=== PATIENT | male | born 1950 | race Caucasian/White ===

== ENCOUNTER 2018-07-09 05:57 | Observation (INO) | payer MEDICARE ==
[2018-07-09] MEDS ORDERED: ASPIRIN 81 MG TABLET, CHEWABLE PO ONE (06:44)
--- NOTE | 2018-07-09 06:47 | ER Document Report ---
ED Medical Screen (RME) - General Chief Complaint: Chest Pain Stated Complaint: CHEST PAIN Time Seen by Provider: 07/09/18 06:40 Notes: Patient is a 60-year-old male presenting to the emergency department complaining of chest pressure. Patient states since he has had intermittent chest pressure and belching. Patient denies any shortness of breath, nausea, vomiting, diarrhea, acid indigestion or GERD history. Patient states this morning he was walking up the steps when the chest pressure developed. States when he sat down and relaxed the chest pressure had resolved. Patient states he was concerned because he has had this intermittently for the last couple days so he presents to the emergency room. Past medical history: Hypertension, hyperlipidemia Medications: Patient is unsure of names Allergies: None Patient denies cigarette smoking, EtOH use, illicit drug use. Physical exam: Lung sounds CTA all espinoza, no chest pain upon palpation of chest , no crepitus.. Patient currently is stating he is chest pain-free. I have greeted and performed a rapid initial assessment of this patient. A comprehensive ED assessment and evaluation of the patient, analysis of test results and completion of the medical decision making process will be conducted by additional ED providers. TRAVEL OUTSIDE OF THE [place] IN LAST 30 DAYS: No - Related Data Allergies/Adverse Reactions: No Known Allergies Allergy (Unverified 07/09/18 06:23) Past Medical History - Social History Chew tobacco use (# tins/day): No Frequency of alcohol use: None Drug Abuse: None - Past Medical History Cardiac Medical History: Reports: Hx Hypercholesterolemia, Hx Hypertension Renal/ Medical History: Denies: Hx Peritoneal Dialysis Physical Exam - Vital signs Vitals: Temp Pulse Resp BP Pulse Ox 98.7 F 55 L 18 180/83 H 96 07/09/18 05:58 07/09/18 05:58 07/09/18 05:58 07/09/18 05:58 07/09/18 05:58 Course - Vital Signs Vital signs: Temp Pulse Resp BP Pulse Ox 98.7 F 55 L 18 180/83 H 96 07/09/18 05:58 07/09/18 05:58 07/09/18 05:58 07/09/18 05:58 07/09/18 05:58
[2018-07-09 06:55] LABS: ABSOLUTE EOSINOPHILS # (AUTO) 0.2 10^3/uL (0.0-0.6); ABSOLUTE LYMPHOCYTES (AUTO) 2.1 10^3/uL (0.5-4.7); ABSOLUTE MONOCYTES (AUTO) 0.6 10^3/uL (0.1-1.4); ABSOLUTE NEUT (AUTO) 3.8 10^3/uL (1.7-8.2); BASOPHILS % (AUTO) 0.5 % (0-2); EOSINOPHILS % (AUTO) 2.8 % (0-6); HEMATOCRIT 44.1 % (37.9-51.0); HEMOGLOBIN 15.3 g/dL (13.5-17.0); LYMPHOCYTES % (AUTO) 31.3 % (13-45); MEAN CORPUSCULAR HEMOGLOBIN 30.2 pg (27.0-33.4); MEAN CORPUSCULAR HGB CONC 34.8 g/dL (32.0-36.0); MEAN CORPUSCULAR VOLUME 87 fl (80-97); MONOCYTES % (AUTO) 8.8 % (3-13); PLATELET COUNT 249 10^3/uL (150-450); RED BLOOD COUNT 5.08 10^6/uL (4.35-5.55); RED CELL DISTRIBUTION WIDTH 12.8 % (11.5-14.0); SEGMENTED NEUTROPHILS % (AUTO) 56.6 % (42-78); TOTAL CELLS COUNTED % (AUTO) 100 %; WHITE BLOOD COUNT 6.7 10^3/uL (4.0-10.5)
--- NOTE | 2018-07-09 07:00 | ER Document Report ---
ED Cardiac - General Mode of Arrival: Ambulatory Information source: Patient TRAVEL OUTSIDE OF THE [place] IN LAST 30 DAYS: No <SCOTT CHEUNG - Last Filed: 07/09/18 08:27> <IRMA CASTRO - Last Filed: 07/09/18 10:05> - General Chief Complaint: Chest Pain Stated Complaint: CHEST PAIN Time Seen by Provider: 07/09/18 06:40 Notes: 68-year-old male who presents to the emergency department today with complaints of exertional chest pain. Patient states he has been having this pain for the past 6 days. Patient states the first time he had this pain was when he was walking up steps. Patient describes the pain as a pressure. Patient states he seems to only get this pain when he is exerting himself. Patient states his pain usually goes away when he burps. Patient states that when the pain begins he sometimes gets diaphoretic but denies any shortness of breath. Patient states both his mother and father had TIAs. Patient has had GERD in the past "when he worked" but states since retiring he has not had a problem with GERD. ( SCOTT CHEUNG) - Related Data Allergies/Adverse Reactions: No Known Allergies Allergy (Unverified 07/09/18 06:23) Past Medical History - General Information source: Patient - Social History Smoking Status: Never Smoker Cigarette use (# per day): No Chew tobacco use (# tins/day): No Frequency of alcohol use: None Drug Abuse: None Lives with: Family Family History: Reviewed & Not Pertinent Patient has suicidal ideation: No Patient has homicidal ideation: No - Past Medical History Cardiac Medical History: Reports: Hx Hypercholesterolemia, Hx Hypertension Surgical Hx: Negative <SCOTT CHEUNG - Last Filed: 07/09/18 08:27> Review of Systems - Review of Systems Constitutional: See HPI, Diaphoresis EENT: No symptoms reported Cardiovascular: See HPI, Chest pain Respiratory: denies: Short of breath Gastrointestinal: No symptoms reported Genitourinary: No symptoms reported Male Genitourinary: No symptoms reported Musculoskeletal: No symptoms reported Skin: No symptoms reported Hematologic/Lymphatic: No symptoms reported Neurological/Psychological: No symptoms reported -: Yes All other systems reviewed and negative <SCOTT CHEUNG - Last Filed: 07/09/18 08:27> Physical Exam <SCOTT CHEUNG - Last Filed: 07/09/18 08:27> <IRMA CASTRO - Last Filed: 07/09/18 10:05> - Vital signs Vitals: Temp Pulse Resp BP Pulse Ox 98.7 F 55 L 18 180/83 H 96 07/09/18 05:58 07/09/18 05:58 07/09/18 05:58 07/09/18 05:58 07/09/18 05:58 - Notes Notes: Physical Exam: General: Alert, appears well. HEENT: Normocephalic. Atraumatic. PERRL. Extraocular movements intact. Oropharynx clear. Neck: Supple. Non-tender. Respiratory: No respiratory distress. Clear and equal breath sounds bilaterally. Cardiovascular: Regular rate and rhythm. Abdominal: Normal Inspection. Non-tender. No distension. Normal Bowel Sounds. Back: Non-tender. No deformity or step off. Extremities: Moves all four extremities. Upper extremities: Normal inspection. Normal ROM. Lower extremities: Normal inspection. No edema. Normal ROM. Neurological: Normal cognition. AAOx4. Normal speech. Psychological: Normal affect. Normal Mood. Skin: Warm. Dry. Normal color. (SCOTT CHEUNG) Course - Laboratory Result Diagrams: 07/09/18 06:12 07/09/18 06:12 <SCOTT CHEUNG - Last Filed: 07/09/18 08:27> - Laboratory Result Diagrams: 07/09/18 06:12 07/09/18 06:12 - Diagnostic Test Radiology reviewed: Image reviewed, Reports reviewed - Chest x-ray does not show acute cardiopulmonary process - EKG Interpretation by Al EKG shows normal: Sinus rhythm, [place], Intervals, QRS Complexes, ST-T Waves Rate: Normal - 55 Rhythm: NSR When compared to previous EKG there are: Previous EKG unavailable - Consults Dr. Steen Time consulted: 10:00 Consulted provider: will come to ER <IRMA CASTRO - Last Filed: 07/09/18 10:05> - Vital Signs Vital signs: Temp Pulse Resp BP Pulse Ox 98.7 F 55 L 11 L 163/73 H 95 07/09/18 05:58 07/09/18 05:58 07/09/18 10:00 07/09/18 10:00 07/09/18 10:00 - Laboratory Laboratory results interpreted by me: 07/09/18 07/09/18 06:12 06:12 Glucose 116 H CK-MB (CK-2) 5.18 H Discharge <SCOTT CHEUNG - Last Filed: 07/09/18 08:27> - Discharge Admitting Provider: Hospitalist Unit Admitted: Telemetry <IRMA CASTRO - Last Filed: 07/09/18 10:05> - Discharge Clinical Impression: Exertional chest pain Condition: Stable Disposition: ADMITTED INPATIENT Scribe Attestation: 07/09/18 07:58 I personally performed the services described in the documentation, reviewed and edited the documentation which was dictated to the scribe in my presence, and it accurately records my words and actions. (IRMA CASTRO) Scribe Documentation - Scribe Written by Scribe:: Dae Kearney, 07/09/2018 0831 acting as scribe for :: Belén <SCOTT CHEUNG - Last Filed: 07/09/18 08:27>
--- NOTE | 2018-07-09 07:19 | RADIOLOGY REPORT (SQ) ---
EXAM DESCRIPTION: XR CHEST 1 VIEW COMPLETED DATE/TME: 07/09/2018 06:45 CLINICAL HISTORY: 68 years Male, CP COMPARISON: None. NUMBER OF VIEWS/TECHNIQUE: 1/AP FINDINGS: Adequate lung volume, clear parenchyma, normal cardiac silhouette, and intact bony thorax. IMPRESSION: No acute cardiopulmonary findings.
--- NOTE | 2018-07-09 07:38 | EKG REPORT ---
SEVERITY:- ABNORMAL ECG - SINUS RHYTHM PROBABLE INFERIOR INFARCT, OLD : Confirmed by: Stevie Gramajo MD 09-Jul-2018 07:38:11
[2018-07-09 07:46] LABS: ALANINE AMINOTRANSFERASE 30 U/L (21-72); ALBUMIN 4.1 g/dL (3.5-5.0); ALKALINE PHOSPHATASE 64 U/L (38-126); ANION GAP 10 (5-19); ASPARTATE AMINO TRANSFERASE 24 U/L (17-59); BILIRUBIN,DIRECT 0.3 mg/dL (0.0-0.4); BILIRUBIN,TOTAL 0.7 mg/dL (0.2-1.3); BLOOD UREA NITROGEN 20 mg/dL (7-20); CALCIUM 9.7 mg/dL (8.4-10.2); CARBON DIOXIDE 29 mmol/L (22-30); CHLORIDE 104 mmol/L (98-107); CREATINE KINASE 117 U/L (55-170); GLUCOSE 116 mg/dL (75-110); SODIUM 143.2 mmol/L (137-145); TOTAL PROTEIN 6.8 g/dL (6.3-8.2)
[2018-07-09 07:59] LABS: CREATINE KINASE MB 5.18 ng/mL (<4.55); TROPONIN I 0.013 ng/mL
[2018-07-09 09:50] LABS: CREATINE KINASE MB 4.29 ng/mL (<4.55); TROPONIN I 0.016 ng/mL
[2018-07-09] MEDS ORDERED: NITROGLYCERIN 0.4 MG/TAB 25 TAB/BOTTLE SL PRN (12:32)
[2018-07-09] MEDS: HEPARIN SOD (PORCINE) 5,000 UNIT/ML 1 ML SYRINGE SUBCUT SCH ×2 (15:48→22:07)
[2018-07-09] MEDS: LANSOPRAZOLE 30 MG TAB.RAP.DR PO SCH (17:03)
--- NOTE | 2018-07-09 17:34 | PDOC H&P ---
History of Present Illness Admission Date/PCP: 07/09/18 10:20 Patient complains of: chest pain History of Present Illness: NORMA GROSS is a 68 year old male with a PMH of hypertension, hyperlipidemia , non-smoker and no significant cardiac family history who presented with chest pain which started 5 days ago (). He says that he was climbing up the stairs when he first had it and described it as both pressure-like and burning at the same time, 5/10 (in the worst episode, non-radiating and exertional. He says he also had associated belching. He says burping and resting gives him relief. He denies SOB, nausea/vomiting, palpitations or diaphoresis. He says it comes on and off lasting for a few minutes. He says the chest discomfort has been improving in the past few days but he decided to come in today because it still lingered earlier. He says he was already chest pain free in the ER when he came in and was given aspirin and so is not able to say if the aspirin helped or not. Past Medical History Cardiac Medical History: Reports: Hyperlipidema, Hypertension Social History Lives with: Family Smoking Status: Never Smoker Family History Family History: Reviewed & Not Pertinent Parental Family History Reviewed: Yes - no premature CAD Children Family History Reviewed: No Sibling(s) Family History Reviewed.: No Medication/Allergy Home Medications: Amlodipine Besylate/Benazepril [Lotrel 5-20 mg Capsule] 1 cap PO NOON 07/09/18 Atorvastatin Calcium [Lipitor 20 mg Tablet] 20 mg PO NOON 07/09/18 Cholecalciferol (Vitamin D3) [Vitamin D3 2000 unit Tablet] 2,000 unit PO NOON Furosemide [Lasix 40 mg Tablet] 40 mg PO NOON PRN 07/09/18 Meloxicam [Mobic] 15 mg PO NOON 07/09/18 Metoprolol Succinate [Toprol Xl 50 mg Tab.sr] 50 mg PO NOON 07/09/18 Potassium Chloride [K-Tab ER] 20 meq PO NOON PRN 07/09/18 Sertraline HCl [Zoloft 50 mg Tablet] 50 mg PO NOON 07/09/18 Allergies/Adverse Reactions: No Known Allergies Allergy (Unverified 07/09/18 06:23) Review of Systems All systems: reviewed and no additional remarkable complaints except as stated - as mentioned in HPI Physical Exam Vital Signs: Temp Pulse Resp BP Pulse Ox 98.7 F 55 L 16 161/74 H 96 07/09/18 05:58 07/09/18 05:58 07/09/18 10:31 07/09/18 10:31 07/09/18 10:31 General appearance: PRESENT: no acute distress, well-developed, well-nourished Head exam: PRESENT: atraumatic, normocephalic Eye exam: PRESENT: conjunctiva pink, EOMI, PERRLA. ABSENT: scleral icterus Ear exam: PRESENT: normal external ear exam Mouth exam: PRESENT: moist, tongue midline Neck exam: ABSENT: carotid bruit, JVD, lymphadenopathy, thyromegaly Respiratory exam: PRESENT: clear to auscultation kacey. ABSENT: rales, rhonchi, wheezes Cardiovascular exam: PRESENT: RRR. ABSENT: diastolic murmur, rubs, systolic murmur Pulses: PRESENT: normal dorsalis pedis pul GI/Abdominal exam: PRESENT: normal bowel sounds, soft. ABSENT: distended, guarding, mass, organolmegaly, rebound, tenderness Rectal exam: PRESENT: deferred Extremities exam: PRESENT: full ROM. ABSENT: calf tenderness, clubbing, pedal edema Neurological exam: PRESENT: alert, awake, oriented to person, oriented to place , oriented to time, oriented to situation, CN II-XII grossly intact. ABSENT: motor sensory deficit Psychiatric exam: PRESENT: appropriate affect, normal mood. ABSENT: homicidal ideation, suicidal ideation Results Impressions: Chest X-Ray 07/09/18 06:45 IMPRESSION: No acute cardiopulmonary findings. Assessment & Plan - Diagnosis (1) Chest pain Is this a current diagnosis for this admission?: Yes Plan: Patient is complaining of atypical chest pain with some GERD components as he says it is both pressure like and burning. He says the chest pain is also associated with a lot of belching. He says that burping as well as resting significantly relieves the chest discomfort. Troponins was slightly elevated at 0.016. 3rd troponin has normalized. EKG does not show acute changes. Patient has been chest pain free since admission. Will schedule patient for stress testing tomorrow. NPO post midnight. (2) Hypertension Is this a current diagnosis for this admission?: Yes Plan: Resume amlodipine and benazepril. Hold lopressor for now. (3) Hyperlipidemia Is this a current diagnosis for this admission?: Yes Plan: Resume atorvastatin. - Time Time Spent: 30 to 50 Minutes
[2018-07-09] MEDS ORDERED: AMLODIPINE BESYLATE PO SCH (17:45)
[2018-07-09] MEDS ORDERED: BENAZEPRIL PO SCH (17:45)
[2018-07-09] MEDS: ATORVASTATIN CALCIUM 20 MG TABLET PO SCH (17:53)
--- NOTE | 2018-07-09 18:37 | XCELERA REPORT ---
[address] [address] Transthoracic Echocardiogram Report Name: NORMA GROSS Age: 68 yrs Gender: Male : 1950 Patient Status: Inpatient Patient Location: [address] [place], [place] [id number] Study Date: 07/09/2018 03:46 PM Height: 72 in Weight: 220 lb BSA: 2.2 m2 Procedure: A complete two-dimensional transthoracic echocardiogram was performed (2D, M-mode, spectral and color flow Doppler). The study was technically adequate with some images being suboptimal in quality. Reason For Study: r/o ACS Ordering Physician: DEB MICHEL Performed By: Adrienne Ibanez Interpretation Summary The left ventricular ejection fraction is normal. There is mild concentric left ventricular hypertrophy. The left ventricle is grossly normal size. Doppler measurements suggest pseudonormalized left ventricular relaxation, which is associated with grade II/IV or mild to moderate diastolic dysfunction Wall motion cannot be accurately commented on, but no definite regional wall motion abnormalities noted. The left atrium is mildly dilated. The right atrium is normal in size There is a trace amount of mitral regurgitation There is no mitral valve stenosis. No aortic regurgitation is present. There is no aortic valve stenosis No tricuspid regurgitation. There is no tricuspid stenosis. The aortic root is not well visualized but is probably normal size. The inferior vena cava appeared small and collapsed with respiration (RAP 0-5 mmHg) There is no pericardial effusion. MMode/2D Measurements & Calculations RVDd: 4.3 cm LVIDd: 5.6 cm FS: 48.0 % Ao root diam: 3.2 cm IVSd: 0.99 cm LVIDs: 2.9 cm EDV(Teich): 154.4 ml Ao root area: 8.0 cm2 LVPWd: 0.99 cm ESV(Teich): 32.8 ml EF(Teich): 78.8 % Doppler Measurements & Calculations MV E max lisa: MV dec slope: Ao V2 max: LV V1 max P.6 cm/sec 103.5 cm/sec2 121.5 cm/sec 4.8 mmHg MV A max lisa: MV dec time: 0.46 sec Ao max P.9 mmHgLV V1 max: 61.0 cm/sec 109.9 cm/sec MV E/A: 0.78 PA V2 max: PI end-d lisa: TR max lisa: 79.9 cm/sec 85.7 cm/sec 330.4 cm/sec PA max P.6 mmHg TR max P.7 mmHg Left Ventricle The left ventricle is grossly normal size. There is mild concentric left ventricular hypertrophy. The left ventricular ejection fraction is normal. Doppler measurements suggest pseudonormalized left ventricular relaxation, which is associated with grade II/IV or mild to moderate diastolic dysfunction. Wall motion cannot be accurately commented on, but no definite regional wall motion abnormalities noted. Right Ventricle The right ventricle is mildly dilated. There is normal right ventricular wall thickness. The right ventricular systolic function is normal. Atria The right atrium is normal in size. The left atrium is mildly dilated. Interarterial septum not well visualized and not well dopplered. Cannot comment on ASD/PFO presence. Mitral Valve The mitral valve is grossly normal. There is no mitral valve stenosis. There is a trace amount of mitral regurgitation. Aortic Valve The aortic valve is grossly normal. There is no aortic valve stenosis. No aortic regurgitation is present. Tricuspid Valve The tricuspid valve is not well visualized, but is grossly normal. There is no tricuspid stenosis. No tricuspid regurgitation. Pulmonic Valve The pulmonic valve is not well visualized. Great Vessels The aortic root is not well visualized but is probably normal size. The inferior vena cava appeared small and collapsed with respiration (RAP 0-5 mmHg). Effusions There is no pericardial effusion. : DEB MICHEL > Orlando Berry
--- NOTE | 2018-07-09 18:56 | PDOC CONSULTATION ---
Consultation Consult Date: 07/09/18 Attending physician:: DEB MICHEL Consult reason:: Chest pain History of Present Illness Admission Date/PCP: 07/09/18 10:20 Patient complains of: Chest pain History of Present Illness: NORMA GROSS is a 68 year old male with a PMH of hypertension, hyperlipidemia , non-smoker and no significant cardiac family history who presented with chest pain which started 5 days ago (). He says that he was climbing up the stairs when he first had it and described it as both pressure-like and burning at the same time, 5/10 (in the worst episode, non-radiating and exertional. He says he also had associated belching. He says burping and resting gives him relief. He denies SOB, nausea/vomiting, palpitations or diaphoresis. He says it comes on and off lasting for a few minutes. He says the chest discomfort has been improving in the past few days but he decided to come in today because it still lingered earlier. He says he was already chest pain free in the ER when he came in and was given aspirin and so is not able to say if the aspirin helped or not. This history obtained by the hospitalist was reviewed and confirmed. Patient denies any prior history of myocardial infarction, angina or congestive heart failure. Patient does give history of loud habitual snoring, fatigue and tiredness during the day. Past Medical History Cardiac Medical History: Reports: Hyperlipidema, Hypertension Musculoskeltal Medical History: Reports: Arthritis - in hands Social History Information Source: Patient Lives with: Family Smoking Status: Never Smoker Drugs: None - Advance Directive Resuscitation Status: Full Code Surrogate healthcare decision maker:: Patient's is the surrogate decision-maker Family History Family History: Hyperlipidemia Parental Family History Reviewed: Yes Children Family History Reviewed: Yes Sibling(s) Family History Reviewed.: Yes Medication/Allergy Home Medications: Amlodipine Besylate/Benazepril [Lotrel 5-20 mg Capsule] 1 cap PO NOON 07/09/18 Atorvastatin Calcium [Lipitor 20 mg Tablet] 20 mg PO NOON 07/09/18 Cholecalciferol (Vitamin D3) [Vitamin D3 2000 unit Tablet] 2,000 unit PO NOON Furosemide [Lasix 40 mg Tablet] 40 mg PO NOON PRN 07/09/18 Meloxicam [Mobic] 15 mg PO NOON 07/09/18 Metoprolol Succinate [Toprol Xl 50 mg Tab.sr] 50 mg PO NOON 07/09/18 Potassium Chloride [K-Tab ER] 20 meq PO NOON PRN 07/09/18 Sertraline HCl [Zoloft 50 mg Tablet] 50 mg PO NOON 07/09/18 Allergies/Adverse Reactions: No Known Allergies Allergy (Unverified 07/09/18 06:23) Review of Systems Review of Systems: Please see history of present illness and past medical history as wall. Constitutional: No fever or chills reported. Head : No recent chronic headaches, recent head injury. Eyes: No recent eye pain, diplopia, redness, discharge, acute visual changes. Ears: No recent chronic ear pain, acute hearing loss, ear discharge. Oral cavity: No recent ulcerations, bleeding, oral cavity discomfort. Neck: No recent acute neck pain reported. Hematologic: No recent easy bruising or bleeding. Lymphatic: No recent lymph node enlargement reported. Cardiovascular system review: See history of present illness. Respiratory system review: No hemoptysis or blood clots in the lungs reported. Mild Shortness of breath on exertion Gastrointestinal system review: Negative for any recent acute hematemesis, melena. Genitourinary system review: No recent acute or chronic hematuria, flank pain, UTI etc. reported. Skin system review: Negative for any recent abnormal bruising, no rash, no pruritus reported. Neurologic: No prior history of strokes, mini strokes, seizure disorder. Psychologic: No history of major psychosis or major depression reported. Musculoskeletal: Minor aches and pains reported. No acute joint swelling reported. Endocrine: No recent polyuria, polydipsia, recent heat or cold intolerance. Physical Exam Vital Signs: Temp Pulse Resp BP Pulse Ox 97.7 F 56 L 16 151/64 H 98 07/09/18 15:32 07/09/18 15:32 07/09/18 15:32 07/09/18 15:32 07/09/18 15:32 Exam: GENERAL: well-nourished and in no acute distress. Alert and oriented x3 HEAD: Atraumatic, normocephalic. EYES: HERMES, sclera anicteric, conjunctiva are normal. ENT: Moist mucous membranes. No oral ulcerations or bleeding gums noted. No obvious ear, nose or throat abnormalities noted. NECK: supple without lymphadenopathy. Trachea is central. No cervical or axillary lymphadenopathy noted. Carotids are 2+, JVD WNL LUNGS: Breath sounds clear bilaterally. No wheezes rales or rhonchi noted. No significant dullness noted on percussion. CHEST: Palpation of the chest wall shows no significant chest wall tenderness. 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 ABDOMEN: Soft, no significant tenderness appreciated, normoactive bowel sounds. No guarding, no rebound. No rigidity noted . No masses appreciated. EXTREMITIES: Pedal pulses are 1-2+, no calf tenderness noted. No clubbing or cyanosis. negative pedal edema noted NEUROLOGICAL: Focused neurological exam showed no significant neurologic deficit. Normal speech, no focal weakness appreciated. PSYCH: Normal mood, normal affect. Judgment and insight within normal limits. SKIN: No significant ecchymosis, skin is noted to be warm. MUSCULOSKELETAL EXAM: No significant acute joint swelling noted. Results Laboratory Results: 07/09/18 13:58 Troponin I 0.018 EKG Comments: Sinus rhythm, no acute ST-T wave changes are noted Impressions: Chest X-Ray 07/09/18 06:45 IMPRESSION: No acute cardiopulmonary findings. Assessment & Plan - Diagnosis (1) Chest pain Is this a current diagnosis for this admission?: Yes (2) Hyperlipidemia Is this a current diagnosis for this admission?: Yes (3) Hypertension Qualifiers: Hypertension type: essential hypertension Qualified Code(s): I10 - Essential (primary) hypertension Is this a current diagnosis for this admission?: Yes (4) Sleep-disordered breathing Is this a current diagnosis for this admission?: Yes (5) Overweight Is this a current diagnosis for this admission?: Yes - Notes Notes: Chest pain: Patient has some typical and atypical features of chest pain. Cardiac enzymes so far has been negative. Electrocardiogram did not show any definitive ST segment changes. Multiple differential diagnoses exist in this patient. In descending order of probability this includes underlying coronary artery disease, gastroesophageal reflux, musculoskeletal pain, referred pain from elsewhere, anxiety panic disorder etc.Patient has significant cardiac risk factors, which indicates that there is a intermediate probability of chest discomfort coming from underlying CAD. Feel that it would need to be evaluated further. Discussed evaluation to assess this. In this regard risk benefits of nuclear stress test and other alternative processes were discussed in detail. The patient prefers to undergo nuclear stress test. The small risk of radiation , myocardial infarction, , cardiac arrhythmias, respiratory distress etc. were discussed. Patient understood the risks and gave informed consent. Nuclear stress test was therefore scheduled. For risk evaluation, patient is also being scheduled for a 2-D echocardiogram. Patient questions were answered. Hypertension: Reasonably well controlled. Blood pressure goal in this patient is 135/85 or less. This was discussed with the patient. Currently blood pressure under reasonable control. Better medication for this patient are NEEMA inhibitor/ARB/beta oliva etc. discussed side effects of uncontrolled hypertension and also severe hypotension. Hyperlipidemia: LDL goal is less than 70. Recommend statin therapy at least intermediate or high dose, of high potency status. Periodic lipid panel and liver panel is indicated. Patient to report any significant muscle discomfort or other side effects. Sleep disorder breathing: Based on patient's symptoms, oropharyngeal exam, body habitus, comorbid diagnosis etc., there is high probability of underlying sleep apnea syndrome. Evaluation is recommended for sleep apnea as treatment of this condition if found is likely to benefit patient and reduce patient's future cardiovascular risk. Overweight: Discussed adverse effect of overweight/obesity on cardiovascular event rate, sleep apnea, diabetes and hypertension et cetera. Patient has been recommended weight loss. Patient advised in weight loss. - Time Time Spent: 30 to 50 Minutes - CODE STATUS was discussed, patient remains full code. Surrogate decision-maker unchanged. Multiple medical problems were addressed. More than 50% of the time spent coordinating care, discussing management plans with involved caregivers. Management plans discussed with involved personnels. Medical decision making was of moderate to high complexity , patient's has multiple comorbidities. Medications reviewed and adjusted accordingly: Yes
[2018-07-10] MEDS: HEPARIN SOD (PORCINE) 5,000 UNIT/ML 1 ML SYRINGE SUBCUT SCH (05:32)
[2018-07-10] MEDS: LANSOPRAZOLE 30 MG TAB.RAP.DR PO SCH (05:35)
[2018-07-10] MEDS ORDERED: ASPIRIN 81 MG TABLET, CHEWABLE PO SCH (10:00)
[2018-07-10 10:55] LABS: CHOLESTEROL 238.46 mg/dL (0-200); TRIGLYCERIDES 192 mg/dL (<150)
[2018-07-10] MEDS: ATORVASTATIN CALCIUM 20 MG TABLET PO SCH (11:12)
[2018-07-10 11:13] LABS: DIRECT LDL 169 mg/dL (<100)
[2018-07-10 11:16] LABS: VLDL CHOLESTEROL 38.4 mg/dL (10-31)
[2018-07-10] MEDS ORDERED: BENAZEPRIL HCL 20 MG TABLET PO SCH (12:00)
[2018-07-10] MEDS ORDERED: AMLODIPINE BESYLATE 5 MG TABLET PO SCH (12:00)
[2018-07-10 12:13] VITALS: BP 157/67
--- NOTE | 2018-07-10 13:42 | DRAGON STRESS TEST REPORT ---
INTRAVENOUS LEXISCAN CARDIOLITE STRESS TEST USING SINGLE PHOTON EMMISION COMPUTERIZED TOMOGRAPHIC. DATE OF PROCEDURE: July 10, 2018, INDICATION : Chest pain CARDIAC RISK FACTORS: Hypertension, dyslipidemia RESTING EKG: Sinus rhythm, no acute ST-T wave changes are noted STRESS EKG: No significant ST segment changes noted with LexiScan bolus REASON FOR TERMINATION: Protocol. PROCEDURE REPORT: Baseline heart rate 60 beats per minute with blood pressure of 156/73. Patient had no significant complaints. Patient was bolused with Lexiscan 0.4 mg intravenously followed by saline bolus. Heart rate at 2 minutes post bolus 98 with a blood pressure of 153/65. 3 minutes post bolus heart rate 71 with blood pressure of 159/76. No significant EKG changes were noted. Patient had no significant complaints during the procedure or postprocedure. CONCLUSIONS: Normal EKG and hemodynamic response to IV LexiScan. NUCLEAR DATA: At rest the patient was given 10.88 millicuries of technetium 99 sestamibi injected intravenously. As per protocol rest gated SPECT images were obtained. On day of stress test, the patient was given intravenous LexiScan at a dose of 0.4 mg in 5 mL intravenously, followed by flush with normal saline. Subsequently the stress dose of 30.7 millicuries of technetium 99 sestamibi was injected intravenously. As per protocol stress gated images were obtained. NUCLEAR INTERPRETATION: Both raw and processed data were used for interpretation. Visual, qualitative, computer-generated quantitative data was used. There was good myocardial uptake of technetium compound. Motion artifact and soft tissue attenuations were noted. Increased visceral uptake was noted. No definitive areas of transient perfusion defect noted, No definitive areas of fixed perfusion defect or scars noted. Borderline decreased uptake was noted distal anterior septum but is felt to be mostly artifactual. Clinical correlation however is requested. EKG gated imaging showed LV EF at 53 %, rest and stress gated EF similar visually. T. I D. ratio was 0.91. Lung heart ratio noted to be within normal limits 0.32. No significant extracardiac and abnormal radiotracer activities were noted. RV free wall uptake was noted to be increased consistent with RVH. IMPRESSION: Also refer to comments under nuclear interpretation. Also test results needs to be interpreted in the context of pretest probability. 1. No definitive areas of transient perfusion defect noted. 2. There is no definitive scintigraphic evidence of myocardial infarction/scar. 3. EKG gated imaging shows left ventricular ejection fraction of approx. 53 %. RV free wall uptake noted to be increased consistent with RVH. 4. Clinical correlation requested as worse disease and or balanced ischemia could be missed. In approximately 10% of the cases Lexiscan may not cause adequate vasodilatory stress. RECOMMENDATIONS: Aggressive risk factor modification and medical management. Further evaluation may be needed if continued symptoms or other high risk indicators are noted on clinical evaluation. Close cardiology follow-up is also recommended. Clinical correlation with echocardiogram derived ejection fraction. Inability to exercise by itself can lead to increased cardiovascular event risks. Consider cardiology consultation and or follow-up if clinically indicated. I am available for cardiology evaluation and consultation if requested by the supervisor drying, unless patient already has a overage shortage and damage clerk. Dr. Alina Berry. MRCP Board certified in cardiology and sleep medicine. Board certified in nuclear cardiology, adult echocardiography. POONAM
[2018-07-10] MEDS ORDERED: REGADENOSON INJ 0.4 MG/5 ML DISP.SYRIN IV ONE (14:52)
[2018-07-10] MEDS ORDERED: AMINOPHYLLINE INJ/PF 250 MG/10 ML SDV IV ONE (14:52)
--- NOTE | 2018-07-10 15:57 | PDOC DISCHARGE SUMMARY ---
General - Admit/Disc Date/PCP Admission Date/Primary Care Provider: 07/09/18 10:20 Discharge Date: 07/10/18 - Discharge Diagnosis (1) Chest pain Is this a current diagnosis for this admission?: Yes (2) Hypertension Is this a current diagnosis for this admission?: Yes (3) Hyperlipidemia Is this a current diagnosis for this admission?: Yes - Additional Information Resuscitation Status: Full Code Discharge Diet: Cardiac Discharge Activity: Activity As Tolerated Prescriptions: Atorvastatin Calcium [Lipitor 40 mg Tablet] 40 mg PO QHS #30 tablet Metoprolol Succinate [Toprol Xl 25 mg Tab.sr] 12.5 mg PO DAILY #30 tab.sr.24h Pantoprazole Sodium [Protonix] 40 mg PO QAM #30 tablet. Home Medications: Amlodipine Besylate/Benazepril [Lotrel 5-20 mg Capsule] 1 cap PO NOON 07/09/18 Cholecalciferol (Vitamin D3) [Vitamin D3 2000 unit Tablet] 2,000 unit PO NOON Furosemide [Lasix 40 mg Tablet] 40 mg PO NOON PRN 07/09/18 Sertraline HCl [Zoloft 50 mg Tablet] 50 mg PO NOON 07/09/18 Atorvastatin Calcium [Lipitor 40 mg Tablet] 40 mg PO QHS #30 tablet 07/10/18 Benazepril HCl [Lotensin 20 mg Tablet] 20 mg PO NOON tablet 07/10/18 Metoprolol Succinate [Toprol Xl 25 mg Tab.sr] 12.5 mg PO DAILY #30 tab.sr.24h Pantoprazole Sodium [Protonix] 40 mg PO QAM #30 tablet. 07/10/18 History of Present Illness History of Present Illness: NORMA GROSS is a 68 year old male with a PMH of hypertension, hyperlipidemia , non-smoker and no significant cardiac family history who presented with chest pain which started 5 days ago (). He says that he was climbing up the stairs when he first had it and described it as both pressure-like and burning at the same time, 5/10 (in the worst episode, non-radiating and exertional. He says he also had associated belching. He says burping and resting gives him relief. He denies SOB, nausea/vomiting, palpitations or diaphoresis. He says it comes on and off lasting for a few minutes. He says the chest discomfort has been improving in the past few days but he decided to come in today because it still lingered earlier. He says he was already chest pain free in the ER when he came in and was given aspirin and so is not able to say if the aspirin helped or not. Hospital Course Hospital Course: Patient was admitted for atypical chest pain. Serial EKGs were unremarkable. Troponin was very slightly elevated at 0.013 and trended back to normal. Patient has been chest pain free since admission. Stress testing was done and came back normal. Echocardiogram was also normal except for a mild diastolic dysfunction. Patient had a few episodes of stable bradycardia in the 50s while asleep. He does snore a lot at night but has not been previously diagnosed with sleep apnea. His lopressor was decreased from 50 mg daily to 12.5 mg daily. He will ff -up with Dr. Berry for a sleep study next week. He will also be prescribed Protonix for a likely GERD. His lipid panel also was remarkable for elevated LDL and TGs. Atorvastatin was increased from 20 to 40 mg daily. Physical Exam Vital Signs: Temp Pulse Resp BP Pulse Ox 97.9 F 63 18 157/67 H 100 07/10/18 14:42 07/10/18 14:42 07/10/18 14:42 07/10/18 14:42 07/10/18 14:42 Intake & Output 07/09/18 07/10/18 07/11/18 06:59 06:59 06:59 Intake Total 120 Balance 120 Weight 216 lb 7.903 oz General appearance: PRESENT: no acute distress, well-developed, well-nourished Head exam: PRESENT: atraumatic, normocephalic Eye exam: PRESENT: conjunctiva pink, EOMI, PERRLA. ABSENT: scleral icterus Ear exam: PRESENT: normal external ear exam Mouth exam: PRESENT: moist, tongue midline Neck exam: ABSENT: carotid bruit, JVD, lymphadenopathy, thyromegaly Respiratory exam: PRESENT: clear to auscultation kacey. ABSENT: rales, rhonchi, wheezes Cardiovascular exam: PRESENT: RRR. ABSENT: diastolic murmur, rubs, systolic murmur Pulses: PRESENT: normal dorsalis pedis pul GI/Abdominal exam: PRESENT: normal bowel sounds, soft. ABSENT: distended, guarding, mass, organolmegaly, rebound, tenderness Rectal exam: PRESENT: deferred Neurological exam: PRESENT: alert, awake, oriented to person, oriented to place , oriented to time, oriented to situation, CN II-XII grossly intact. ABSENT: motor sensory deficit Results Laboratory Results: 07/10/18 10:06 Triglycerides 192 H Cholesterol 238.46 H LDL Cholesterol Direct 169 H VLDL Cholesterol 38.4 H HDL Cholesterol 46 07/09/18 07/10/18 13:58 10:06 Troponin I 0.018 < 0.012 Impressions: Chest X-Ray 07/09/18 06:45 IMPRESSION: No acute cardiopulmonary findings. Qualifiers - * PATIENT BEING DISCHARGED WITH ANY OF THE FOLLOWING DIAGNOSIS: No
--- NOTE | 2018-07-10 20:24 | PDOC PROGRESS REPORT ---
Subjective Progress Note for:: 07/10/18 Subjective:: In the morning nuclear stress test procedure, risk benefits were discussed. Patient agreed to proceed. Patient seems to be doing better with gradual improvement. Pt is denying any chest arm or neck discomfort. Patient denying any PND, orthopnea. Patient denied any sustained palpitations, dizziness, syncope, near syncope. Patient denying any fever chills. Patient denying any other significant discomfort. Patient is maintaining sinus rhythm. Review of systems: Rest review of systems negative. Medications: Medications have been reviewed. Reason For Visit: CHEST PAIN Physical Exam Vital Signs: Temp Pulse Resp BP Pulse Ox 97.9 F 63 18 157/67 H 100 07/10/18 14:42 07/10/18 14:42 07/10/18 14:42 07/10/18 14:42 07/10/18 14:42 Intake & Output 07/09/18 07/10/18 07/11/18 06:59 06:59 06:59 Intake Total 120 Balance 120 Weight 98.2 kg Exam: GENERAL: well-nourished and in no acute distress. Alert and oriented x3 HEAD: Atraumatic, normocephalic. EYES: HERMES, sclera anicteric, conjunctiva are normal. ENT: Moist mucous membranes. No oral ulcerations or bleeding gums noted. No obvious ear, nose or throat abnormalities noted. NECK: supple without lymphadenopathy. Trachea is central. No cervical or axillary lymphadenopathy noted. Carotids are 2+, JVD WNL LUNGS: Breath sounds clear bilaterally. No wheezes rales or rhonchi noted. No significant dullness noted on percussion. CHEST: Palpation of the chest wall shows no significant chest wall tenderness. 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 ABDOMEN: Soft, no significant tenderness appreciated, normoactive bowel sounds. No guarding, no rebound. No rigidity noted . No masses appreciated. EXTREMITIES: Pedal pulses are 1-2+, no calf tenderness noted. No clubbing or cyanosis. negative pedal edema noted NEUROLOGICAL: Focused neurological exam showed no significant neurologic deficit. Normal speech, no focal weakness appreciated. PSYCH: Normal mood, normal affect. Judgment and insight within normal limits. SKIN: No significant ecchymosis, skin is noted to be warm. MUSCULOSKELETAL EXAM: No significant acute joint swelling noted. Results Laboratory Results: 07/10/18 10:06 Triglycerides 192 H Cholesterol 238.46 H LDL Cholesterol Direct 169 H VLDL Cholesterol 38.4 H HDL Cholesterol 46 07/09/18 07/10/18 13:58 10:06 Troponin I 0.018 < 0.012 EKG Comments: Sinus rhythm no acute ST-T wave changes noted. Impressions: Chest X-Ray 07/09/18 06:45 IMPRESSION: No acute cardiopulmonary findings. Assessment & Plan - Diagnosis (1) Chest pain Is this a current diagnosis for this admission?: Yes (2) Hyperlipidemia Is this a current diagnosis for this admission?: Yes (3) Hypertension Qualifiers: Hypertension type: essential hypertension Qualified Code(s): I10 - Essential (primary) hypertension Is this a current diagnosis for this admission?: Yes (4) Sleep-disordered breathing Is this a current diagnosis for this admission?: Yes (5) Overweight Is this a current diagnosis for this admission?: Yes - Notes Notes: Chest pain: Patient has some typical and atypical features of chest pain. Cardiac enzymes so far has been negative. Electrocardiogram did not show any definitive ST segment changes. Nuclear stress test was performed and was negative for any pharmacologic stress-induced ischemia. Patient could be discharged with close cardiology follow-up. Please be informed that single- vessel disease could be missed. Also occasionally balanced ischemia could be missed. Hypertension: Reasonably well controlled. Blood pressure goal in this patient is 135/85 or less. This was discussed with the patient. Currently blood pressure under reasonable control. Better medication for this patient are NEEMA inhibitor/ARB/beta oliva etc. discussed side effects of uncontrolled hypertension and also severe hypotension. Hyperlipidemia: LDL goal is less than 70. Recommend statin therapy at least intermediate or high dose, of high potency status. Periodic lipid panel and liver panel is indicated. Patient to report any significant muscle discomfort or other side effects. Sleep disorder breathing: Based on patient's symptoms, oropharyngeal exam, body habitus, comorbid diagnosis etc., there is high probability of underlying sleep apnea syndrome. Evaluation is recommended for sleep apnea as treatment of this condition if found is likely to benefit patient and reduce patient's future cardiovascular risk. Patient would benefit from follow-up with my office regarding this condition. Overweight: Discussed adverse effect of overweight/obesity on cardiovascular event rate, sleep apnea, diabetes and hypertension et cetera. Patient has been recommended weight loss. Patient advised in weight loss. - Time Time with patient: Greater than 35 minutes - More than 50% of the time spent coordinating care, discussing management plans with involved caregivers. Management plans discussed with involved personnels. Medical decision making was of moderate to high complexity, patient's has multiple comorbidities. Medications reviewed and adjusted accordingly: Yes
== END 2018-07-10 15:00 | disposition home or self-care (01) ==
LOC: ER 05:57 → EH 10:20 → INTOOBSV 10:20 → 4S 11:01
PROVIDERS: ADMIT Internal Medicine; ATTEND Internal Medicine
DX: R07.89 Other chest pain (principal); I10 Essential (primary) hypertension; E78.5 Hyperlipidemia, unspecified; R14.2 Eructation; R06.83 Snoring; R00.1 Bradycardia, unspecified; R06.02 Shortness of breath; E66.3 Overweight; G47.30 Sleep apnea, unspecified; Z79.899 Other long term (current) drug therapy
CPT/HCPCS: 93005; 99285; 36415 ×2; 82553; 82550; 85025; 80053; 84484 ×2; 80061; 93306; 93017; 71045; 78452; 93010; G0378 ×2; A9500; J2785; A9270 ×6; J3490; J0280; Q9969